=== PATIENT | male | born 1960 | race Caucasian/White ===

== ENCOUNTER 2019-03-03 19:16 | Emergency (ER) | payer OTHER ==
[2019-03-03] MEDS ORDERED: diphenhydrAMINE HCL 25 MG CAPSULE (FP) PO ONE ×2 (20:22→21:02)
--- NOTE | 2019-03-03 20:22 | PDOC ---
Rapid Medical Evaluation Time Seen by Provider: 03/03/19 20:08 Medical Evaluation: 03/03/19 20:18 CC: rash x1 day after taking Lycopene supplement PE: Puritic scattered multiform hyperpigmented lesions with areas of raised pink wheals Orders: benadryl Patient will proceed to the ER for further evaluation. Discharge Disposition - Diagnosis Urticaria - Referrals - Patient Instructions - Post Discharge Activity
[2019-03-03 20:23] VITALS: BP 120/85; PULSE 90; TEMP 98.1; BMI 25.8
--- NOTE | 2019-03-03 20:58 | PDOC ---
History of Present Illness - General Chief Complaint: Hives Stated Complaint: HIVES Time Seen by Provider: 03/03/19 20:08 History Source: Patient - History of Present Illness Initial Comments: 03/03/19 21:01 58 year old male reports itchiness to the groin and buttocks since yesterday. patient reports that he took a lycopene pill yesterday unsure if its allergy to that. PMHX: diabetes, on methadone, heroin abuse reports doing 2 bags today Past History - Past Medical History Allergies/Adverse Reactions: Allergies Allergy/AdvReac Type Severity Reaction Status Date / Time No Known Allergies Allergy Verified 03/03/19 20:23 Home Medications: Ambulatory Orders Hydrocortisone 1% Ointment [Hytone 1% Ointment -] 1 applic TP BID #1 tube Loratadine [Claritin] 10 mg PO DAILY #20 tablet 03/03/19 Prednisone [Deltasone] 20 mg PO DAILY #4 tablet 03/03/19 COPD: No Diabetes: Yes - Psycho Social/Smoking Cessation Hx Smoking History: Current every day smoker Have you smoked in the past 12 months: Yes Number of Cigarettes Smoked Daily: 10 Information on smoking cessation initiated: No Hx Alcohol Use: No Drug/Substance Use Hx: No Review of Systems - Review of Systems Able to Perform ROS?: Yes Is the patient limited Occitan proficient: No Integumentary: Yes: Pruritus *Physical Exam - Vital Signs Last Vital Signs Temp Pulse Resp BP Pulse Ox 98.1 F 90 18 120/85 100 03/03/19 20:19 03/03/19 20:19 03/03/19 20:19 03/03/19 20:19 03/03/19 20:19 - Physical Exam General Appearance: Yes: Appropriately Dressed HEENT: positive: Normal ENT Inspection, Other (no oral swelling) Neck: positive: Supple Respiratory/Chest: positive: Lungs Clear, Normal Breath Sounds Extremity: positive: Erythema (hives to thighs, maculopapular rash to thighs and buttocks) Integumentary: positive: Normal Color, Dry, Warm Neurologic: positive: Fully Oriented, Alert, Normal Mood/Affect ED Progress Note - Progress Note Progress Note: 03/03/19 21:07 A: skin allergy P: benadryl prednisone short course Discharge - Discharge Information Problems reviewed: Yes Clinical Impression/Diagnosis: Urticaria Disposition: HOME - Additional Discharge Information Prescriptions: Hydrocortisone 1% Ointment [Hytone 1% Ointment -] 1 applic TP BID #1 tube Loratadine [Claritin] 10 mg PO DAILY #20 tablet Prednisone [Deltasone] 20 mg PO DAILY #4 tablet - Follow up/Referral - Patient Discharge Instructions Patient Printed Discharge Instructions: Jerrell Additional Instructions: take claritin as prescription apply a small amount of hydrocortisone to thighs follow up with your doctor as soon as possible. - Post Discharge Activity Work/Back to School Note: Back to Work
[2019-03-03] MEDS ORDERED: predniSONE 20 MG TABLET (UD) PO ONE (21:07)
[2019-03-03] MEDS ORDERED: LORATADINE 10 MG TABLET PO ONE (21:07)
== END 2019-03-03 21:44 | disposition home or self-care (01) ==
LOC: JER 19:16
DX: L50.0 Allergic urticaria (principal); E11.9 Type 2 diabetes mellitus without complications; F11.20 Opioid dependence, uncomplicated; F17.210 Nicotine dependence, cigarettes, uncomplicated
CPT/HCPCS: 99281-25